=== PATIENT | male | born 1985 | race Caucasian/White ===

== ENCOUNTER 2024-03-01 13:42 | Emergency (ER) | payer SELFPAY ==
[~2024-03-01] VITALS: Ht 177.8 cm; Wt 91.0 kg
[2024-03-01 13:57] VITALS: TEMP 98.1; O2SAT 99
[2024-03-01] MEDS ORDERED: KETOROLAC 15MG/ML VIAL IM ONE (14:30)
[2024-03-01] MEDS: LIDOCAINE HCL/EPINEPHRINE 1%-EPI 1:100,000 50ML VIAL INFIL ONE (15:01)
[2024-03-01] MEDS: LIDOCAINE HCL/EPINEPHRINE 1%-EPI 1:100,000 20ML VIAL INFIL SCH (15:02)
[2024-03-01] MEDS: KETOROLAC 15MG/ML VIAL IM NR (15:02)
[2024-03-01] MEDS ORDERED: BO1 TP (16:29)
[2024-03-01 17:08] VITALS: BP 131/81; PULSE 63; RESP 16; O2SAT 98
== END 2024-03-01 17:21 | disposition home or self-care (01) ==
LOC: ER 13:42
DX: S51.812A Laceration without foreign body of left forearm, initial encounter (principal); W29.3XXA Contact with powered garden and outdoor hand tools and machinery, initial encounter; Y93.89 Activity, other specified; Y92.89 Other specified places as the place of occurrence of the external cause; Y99.8 Other external cause status
CPT/HCPCS: 73090; 12004; 96372; 99283; J1885; J3490; Z7610 ×3

== ENCOUNTER 2024-03-03 07:03 | Emergency (ER) | payer SELFPAY ==
[~2024-03-03] VITALS: Ht 167.6 cm; Wt 73.0 kg
[~2024-03-03 07:03] MED LIST: BO1 TP
[2024-03-03 07:22] VITALS: BP 114/63; PULSE 58; RESP 18; TEMP 98.7; O2SAT 99
[2024-03-03] MEDS ORDERED: CEPH500C2 MT (08:17)
== END 2024-03-03 08:36 ==
LOC: ER 07:03
DX: S51.812D Laceration without foreign body of left forearm, subsequent encounter (principal); X58.XXXD Exposure to other specified factors, subsequent encounter
CPT/HCPCS: 99283

== ENCOUNTER 2024-03-11 08:46 | Emergency (ER) | payer SELFPAY ==
[~2024-03-11] VITALS: Ht 175.3 cm; Wt 82.0 kg
[~2024-03-11 08:46] MED LIST changes: +CEPH500C2 MT
[2024-03-11 08:48] VITALS: O2SAT 99
[2024-03-11 10:52] VITALS: BP 108/70; PULSE 62; RESP 16; TEMP 36.78072; O2SAT 99
== END 2024-03-11 10:51 | disposition home or self-care (01) ==
LOC: ER 08:46
DX: S51.812D Laceration without foreign body of left forearm, subsequent encounter (principal); X58.XXXD Exposure to other specified factors, subsequent encounter
CPT/HCPCS: 99281